=== PATIENT | female | born 1950 | race Caucasian/White ===

== ENCOUNTER 2016-06-10 19:31 | Observation (INO) | payer BC ==
[2016-06-10] MEDS ORDERED: NS 0.9% 1000 ML* 2,000 ML IV ONE (19:44)
--- NOTE | 2016-06-10 20:22 | RAD ---
CLINICAL HISTORY: Pain, status post colonoscopy COMPARISON: None TECHNIQUE: Multiple contiguous axial CT scans were obtained of the abdomen and pelvis, without intravenous contrast enhancement. Coronal and sagittal multiplanar reformations are submitted for review. Oral contrast was not administered. FINDINGS: The study is limited by the lack of intravenous contrast. This limits evaluation of the solid organs and vasculature. LUNG BASES: The lung bases are clear. LIVER: The liver is normal in shape, size, contour, and attenuation. BILE DUCTS: There is no intrahepatic or extrahepatic biliary dilatation. GALLBLADDER: Multiple gallstones are noted. There is no pericholecystic inflammatory change. PANCREAS: The pancreas is normal, without mass or ductal dilatation. SPLEEN: Normal in size and appearance. UPPER GI TRACT: Evaluation of the gastrointestinal tract is limited by incomplete gastric distention. There is post surgical change to the upper GI tract, possibly status post Stefany-en-Y gastrectomy. There is distention with a large amount of gastric contents within the gastric remnant SMALL BOWEL AND MESENTERY: The small bowel is normal in contour, course, and caliber. There is no obstruction or dilatation. COLON: There are multiple diverticula of the descending and sigmoid colon. There is no pericolonic inflammatory change. ADRENALS: Normal bilaterally. KIDNEYS: The kidneys are normal in shape, size, contour, and axis. There is no hydronephrosis or nephrolithiasis. BLADDER: The bladder is incompletely distended but is grossly normal. PELVIC ORGANS: The pelvic organs are not visualized. AORTA: The aorta is normal. IVC: Unremarkable LYMPH NODES: There is no lymphadenopathy by size criteria. ABDOMINAL WALL: There is no evidence for abdominal wall hernia. BONES AND SOFT TISSUES: There are mild diffuse degenerative changes. OTHER: There is no free intraperitoneal gas IMPRESSION: 1. DIVERTICULOSIS. 2. NO FREE INTRAPERITONEAL GAS TO SUGGEST PERFORATION. 3. THE PATIENT APPEARS TO BE STATUS POST GASTRIC BYPASS, WITH WITH A LARGE AMOUNT OF GASTRIC CONTENTS WITHIN THE GASTRIC REMNANT. 4. CHOLELITHIASIS
[2016-06-10] MEDS ORDERED: HYDROmorphone* 1 MG/ML 1 ML SYR IV ONE ×2 (21:06→22:10)
[2016-06-10] MEDS ORDERED: Metoclopramide IV* 5 MG/ML 2 ML VIAL IV ONE (21:06)
[2016-06-10 21:14] LABS: ALT 119 U/L (7-52); Albumin 3.9 g/dL (3.2-5.2); Alkaline Phosphatase 303 U/L (34-104); BUN/Creatinine Ratio 11.3 (8-20); Blood Urea Nitrogen 9 mg/dL (6-24); C Reactive Protein 27.09 mg/L (< 5.00); CO2 Carbon Dioxide 24 mmol/L (22-32); Calcium 9.1 mg/dL (8.6-10.3); Chloride 97 mmol/L (101-111); EGFR African American 92.9 (>60); EGFR Non-African American 72.2 (>60); Globulin 3.4 g/dL (2-4); Glucose 296 mg/dL (70-100); Lipase 429 U/L (11.0-82.0); Sodium 131 mmol/L (133-145); Total Protein 7.3 g/dL (6.4-8.9)
[2016-06-10 21:25] LABS: Hematocrit 37 % (35-47); Hemoglobin 12.4 g/dl (12.0-16.0); Mean Corpuscular HGB Conc 33 g/dl (31-36); Mean Corpuscular Hemoglobin 28 pg (27-31); Mean Corpuscular Volume 82 fL (80-97); Mean Platelet Volume 8 um3 (7.4-10.4); Red Blood Count 4.51 10^6/ul (4.0-5.4); Red Cell Distribution Width 15 % (10.5-15); White Blood Count 7.4 10^3/ul (3.5-10.8)
[2016-06-10 21:45] LABS: Urine Bilirubin Negative (Negative); Urine Glucose 3+(>=500 mg/dL) (Negative); Urine Nitrite Negative (Negative)
--- NOTE | 2016-06-10 21:54 | ED ---
Mauri Devlin Claudia, scribed for Deepika Valadez MD on 06/10/16 at 2034 . Abdominal Pain/Female - HPI Summary HPI Summary: 65 year old female presents to the ED with diffuse abd pain, fever and chills after a colonoscopy this am. The procedure was done by Cyrus Poon MD. Pt notes that she was feeling fine after the colonoscopy but it was later in the day she began experiencing Sx. Pt notes she ate at 9:30am directly after the procedure and again around 4pm but the Sx did not start until around 5pm this evening. Pt notes the pain is sharp and the pain intensity comes and goes but it is aggravated with movement. Pt admits to N/V due denies and diarrhea. Pt had gastric bypass at [facility] [place] in 1985. - History of Current Complaint Chief Complaint: EDAbdPain Stated Complaint: POST COLONOSCOPY COMPLAINT Time Seen by Provider: 06/10/16 20:27 Onset/Duration: Sudden Onset, Lasting Days - today post colonoscopy, Still Present Timing: Constant Pain Intensity: 8 Pain Scale Used: 0-10 Numeric Location: Diffuse Radiates: No Character: Sharp Aggravating Factor(s): Movement Associated Signs and Symptoms: Positive: Fever, Other: - chills Allergies/Adverse Reactions: Allergies Allergy/AdvReac Type Severity Reaction Status Date / Time No Known Allergies Allergy Verified 06/10/16 19:37 PMH/Surg Hx/FS Hx/Imm Hx Previously Healthy: Yes Endocrine/Hematology History: Reports: Hx Diabetes Cardiovascular History: Denies: Hx Myocardial Infarction Infectious Disease History: No Infectious Disease History: Denies: Traveled Outside the [place] in Last 30 Days - Family History Known Family History: Negative: Cardiac Disease - Social History Occupation: Retired Lives: With Family Alcohol Use: Rare Substance Use Type: Reports: None Smoking Status (MU): Never Smoked Tobacco Review of Systems Positive: Fever, Chills Eyes: Negative ENT: Negative Cardiovascular: Negative Respiratory: Negative Positive: Abdominal Pain, Vomiting, Nausea. Negative: Diarrhea Genitourinary: Negative Musculoskeletal: Negative Skin: Negative Neurological: Negative Psychological: Normal All Other Systems Reviewed And Are Negative: Yes Physical Exam Triage Information Reviewed: Yes Vital Signs On Initial Exam: Initial Vitals Temp Pulse Resp BP Pulse Ox 100.1 F 110 24 159/63 97 06/10/16 19:36 06/10/16 19:36 06/10/16 19:36 06/10/16 19:36 06/10/16 19:36 Vital Signs Reviewed: Yes Appearance: Positive: Ill-Appearing - mildly ill appearing, uncomfortable Skin: Positive: Warm, Skin Color Reflects Adequate Perfusion, Dry Eyes: Positive: EOMI, SERVANDO Neck: Positive: Supple, Nontender Respiratory/Lung Sounds: Positive: Clear to Auscultation, Breath Sounds Present. Negative: Rales, Rhonchi, Wheezes Cardiovascular: Positive: RRR. Negative: Murmur, Leg Edema Left, Leg Edema Right Abdomen Description: Positive: Distended, Other: - diffuse tenderness no rebound no guarding Bowel Sounds: Positive: Hypoactive Musculoskeletal: Positive: Strength/ROM Intact Neurological: Positive: Sensory/Motor Intact, Alert, Oriented to Person Place, Time, CN Intact II-III Psychiatric: Positive: Affect/Mood Appropriate Diagnostics - Vital Signs Vital Signs Temp Pulse Resp BP Pulse Ox 06/10/16 19:36 100.1 F 110 24 159/63 97 - Laboratory Lab Results: Lab Results 06/10/16 06/10/16 06/10/16 Range/Units 20:20 20:53 20:53 WBC 7.4 (3.5-10.8) 10^3/ul RBC 4.51 (4.0-5.4) 10^6/ul Hgb 12.4 (12.0-16.0) g/dl Hct 37 (35-47) % MCV 82 (80-97) fL MCH 28 (27-31) pg MCHC 33 (31-36) g/dl RDW 15 (10.5-15) % Plt Count 146 L (150-450) 10^3/ul MPV 8 (7.4-10.4) um3 Neut % (Auto) 91.2 H (38-83) % Lymph % (Auto) 5.4 L (25-47) % [place] % (Auto) 2.3 (1-9) % Eos % (Auto) 0.6 (0-6) % Baso % (Auto) 0.5 (0-2) % Absolute Neuts (auto) 6.8 (1.5-7.7) 10^3/ul Absolute Lymphs (auto) 0.4 L (1.0-4.8) 10^3/ul Absolute Monos (auto) 0.2 (0-0.8) 10^3/ul Absolute Eos (auto) 0 (0-0.6) 10^3/ul Absolute Basos (auto) 0 (0-0.2) 10^3/ul Absolute Nucleated RBC 0.01 10^3/ul Nucleated RBC % 0.1 Sodium 131 L (133-145) mmol/L Potassium TNP Chloride 97 L (101-111) mmol/L Carbon Dioxide 24 (22-32) mmol/L Anion Gap TNP BUN 9 (6-24) mg/dL Creatinine 0.80 (0.51-0.95) mg/dL Est GFR ( Amer) 92.9 (>60) Est GFR (Non-Af Amer) 72.2 (>60) BUN/Creatinine Ratio 11.3 (8-20) Glucose 296 H (70-100) mg/dL Lactic Acid 1.8 (0.5-2.0) mmol/L Calcium 9.1 (8.6-10.3) mg/dL Total Bilirubin 1.60 H (0.2-1.0) mg/dL AST TNP ALT 119 H (7-52) U/L Alkaline Phosphatase 303 H (34-104) U/L C-Reactive Protein 27.09 H (< 5.00) mg/L Total Protein 7.3 (6.4-8.9) g/dL Albumin 3.9 (3.2-5.2) g/dL Globulin 3.4 (2-4) g/dL Albumin/Globulin Ratio 1.1 (1-3) Lipase 429 H (11.0-82.0) U/L Urine Color Urine Appearance Urine pH (5-9) Ur Specific [place] (1.010-1.030) Urine Protein (Negative) Urine Ketones (Negative) Urine Blood (Negative) Urine Nitrate (Negative) Urine Bilirubin (Negative) Urine Urobilinogen (Negative) Ur Leukocyte Esterase (Negative) Urine Glucose (Negative) 06/10/16 06/10/16 Range/Units 20:53 21:31 WBC (3.5-10.8) 10^3/ul RBC (4.0-5.4) 10^6/ul Hgb (12.0-16.0) g/dl Hct (35-47) % MCV (80-97) fL MCH (27-31) pg MCHC (31-36) g/dl RDW (10.5-15) % Plt Count (150-450) 10^3/ul MPV (7.4-10.4) um3 Neut % (Auto) (38-83) % Lymph % (Auto) (25-47) % [place] % (Auto) (1-9) % Eos % (Auto) (0-6) % Baso % (Auto) (0-2) % Absolute Neuts (auto) (1.5-7.7) 10^3/ul Absolute Lymphs (auto) (1.0-4.8) 10^3/ul Absolute Monos (auto) (0-0.8) 10^3/ul Absolute Eos (auto) (0-0.6) 10^3/ul Absolute Basos (auto) (0-0.2) 10^3/ul Absolute Nucleated RBC 10^3/ul Nucleated RBC % Sodium (133-145) mmol/L Potassium 3.7 Chloride (101-111) mmol/L Carbon Dioxide (22-32) mmol/L Anion Gap BUN (6-24) mg/dL Creatinine (0.51-0.95) mg/dL Est GFR ( Amer) (>60) Est GFR (Non-Af Amer) (>60) BUN/Creatinine Ratio (8-20) Glucose (70-100) mg/dL Lactic Acid (0.5-2.0) mmol/L Calcium (8.6-10.3) mg/dL Total Bilirubin (0.2-1.0) mg/dL AST 359 H ALT (7-52) U/L Alkaline Phosphatase (34-104) U/L C-Reactive Protein (< 5.00) mg/L Total Protein (6.4-8.9) g/dL Albumin (3.2-5.2) g/dL Globulin (2-4) g/dL Albumin/Globulin Ratio (1-3) Lipase (11.0-82.0) U/L Urine Color Yellow Urine Appearance Clear Urine pH 7.0 (5-9) Ur Specific [place] 1.010 (1.010-1.030) Urine Protein Negative (Negative) Urine Ketones Negative (Negative) Urine Blood Negative (Negative) Urine Nitrate Negative (Negative) Urine Bilirubin Negative (Negative) Urine Urobilinogen Positive H (Negative) Ur Leukocyte Esterase Negative (Negative) Urine Glucose 3+(>=500 mg/dl) H (Negative) Result Diagrams: 06/10/16 20:53 06/10/16 20:53 Lab Statement: Any lab studies that have been ordered have been reviewed, and results considered in the medical decision making process. - CT ABD/PELVIS CT Interpretation: No Acute Changes - 1. DIVERTICULOSIS. 2. NO FREE INTRAPERITONEAL GAS TO SUGGEST PERFORATION. 3. THE PATIENT APPEARS TO BE STATUS POST GASTRIC BYPASS, WITH WITH A LARGE AMOUNT OF GASTRIC CONTENTS WITHIN THE GASTRIC REMNANT. CT Interpretation Completed By: Radiologist Abdominal Pain Fem Course/Dx - Diagnoses Provider Diagnoses: Abdominal pain - Provider Notifications Discussed Care Of Patient With: DR. POON WHOM WILL CHECK IN WITH PT. HE ALSO AGREES WITH PLAN FOR REGLAN AND DILAUDID. Discharge - Discharge Plan Condition: Stable Disposition: ADMITTED TO [facility] The documentation as recorded by the Mauri leal Claudia accurately reflects the service I personally performed and the decisions made by , Deepika Valadez MD.
--- NOTE | 2016-06-10 22:30 | RAD ---
HISTORY: Elevated liver enzymes COMPARISONS: CT dated June 10, 2016 TECHNIQUE: Multiple transverse and longitudinal ultrasound images were obtained of the right upper quadrant of the abdomen using grayscale and color Doppler imaging. FINDINGS: The study is limited by patient bowel gas. LIVER: The liver is diffusely echogenic and coarse in echotexture, with decreased acoustic transmission. The liver is enlarged measuring 21 cm in long axis.. There is normal hepatopedal flow of the portal vein on Doppler imaging. BILIARY TREE: There is no intrahepatic or extrahepatic biliary dilatation. The common duct measures 0.4 cm. GALLBLADDER: There are multiple echogenic, nonshadowing, immobile foci consistent with gallbladder wall polyps. There are probable gallstones as noted on CT. There is no gallbladder wall thickening or pericholecystic fluid, or sonographic Medrano sign. PANCREAS: The head of the pancreas is unremarkable. The tail of the pancreas is not well visualized secondary to overlying bowel gas. RIGHT KIDNEY: The right kidney is normal in shape, size, contour, and echogenicity. There is no hydronephrosis or nephrolithiasis. The right kidney measures 10.9 x 4.7 x 4.8 cm. AORTA AND IVC: The aorta and IVC are unremarkable. FLUID: There are no pleural effusions. There is no free fluid within the hepatorenal recess. OTHER FINDINGS: None. IMPRESSION: 1. HEPATOMEGALY WITH FATTY INFILTRATION OF THE LIVER. 2. NO SONOGRAPHIC FEATURES OF ACUTE CHOLECYSTITIS.
--- NOTE | 2016-06-10 23:22 | CONS ---
CONSULTATION NOTE: DATE OF CONSULT: 06/10/16 REASON FOR THE CONSULTATION: Abdominal pain, status post colonoscopy. NARRATIVE: Ms. Jj is a 65-year-old woman who underwent an outpatient elective colonoscopy this morning that was done due to a family history of colon cancer. The study was notable for a few small polyps, which were removed with biopsy forceps, no cautery was applied. The patient postprocedure did well. She was able to tolerate liquids and was discharged home. She continued to do well through the course of the day. She ate a breakfast sandwich, fries, and then had a vegetable chicken soup. She then went to take a nap at around 4 this afternoon and awoke at about 6 with intense abdominal pain with distention , nausea, and vomiting. She felt chills. She contacted me, at which time I told her to report to the emergency room. On arrival here, she had a low-grade fever of about 100 and was describing abdominal pain. Her workup here has included a CAT scan of the abdomen without contrast, which I did personally review with the radiologist, demonstrating no evidence of perforation or colonic injury or splenic injury. The patient has a history of gastric stapling and did have a large amount of food in the stomach. Additionally, cholelithiasis was noted with a somewhat distended gallbladder. Laboratory data came back demonstrating a white count of 7.4, hemoglobin of 12.4 , total bilirubin of 1.6, AST of 359, ALT of 119, alk phos of 303, and a lipase of 429. The patient is currently getting an ultrasound. The patient does describe occasions of abdominal pain, nausea, and vomiting and is always attributed to complications after her gastric stapling. She was under the impression that she did have a cholecystectomy at the time of her gastric surgery. PAST MEDICAL HISTORY: Includes asthma, thyroid disease, and obesity. PAST SURGICAL HISTORY: Includes gastric stapling, abdominoplasty, hysterectomy , breast reductions, and 2 C-sections. MEDICATIONS: Ambulatory medicines include: 1. Xanax. 2. Clobetasol. 3. Gabapentin. 4. Claritin. 5. Prilosec. 6. Ditropan. 7. Inderal. 8. DiaBeta. PHYSICAL EXAMINATION: On physical exam, the patient is a somewhat uncomfortable obese woman, alert. Her temperature is 100.1, blood pressure is 159/63, and heart rate is 110 and regular. She is anicteric. Cardiac exam reveals a tachycardic rhythm but no murmur. Abdomen is obese with multiple scars. It is soft and there is [id number] tenderness in the right and left lower quadrants without rebound or guarding. There is no Medrano's sign. IMPRESSION: A 65-year-old woman who underwent an elective colonoscopy earlier today, felt well and then presents with abdominal pain, nausea, and vomiting. Laboratory data suggests perhaps gallstone pancreatitis. She does have cholelithiasis on the CAT scan. She also has a significant amount of food in the stomach after gastric stapling. There is no evidence of colonic injury. This maybe a manifestation of gallstone pancreatitis, unrelated to her colonoscopy. Alternatively, this could be from overeating post procedure; however, that would not explain about biochemical changes. We are going to get to an ultrasound. I believe she should be admitted and spoken to the hospitalist service for that. She should get repeat liver function tests in the morning. We are also going to attempt an NG tube to suction the gastric material to see if that improves how she feels. This was explained to her and her family. [id number]/[facility] #: [id number] MTDD
[2016-06-11] MEDS ORDERED: Ondansetron INJ* 2 MG/ML VIAL IV PRN (00:08)
[2016-06-11] MEDS ORDERED: HYDROmorphone* 1 MG/ML 1 ML SYR IV SLOW PU PRN (00:08)
[2016-06-11] MEDS ORDERED: NS 0.9% 1000 ML* 1,000 ML IV SCH ×2 (00:15→11:17)
[2016-06-11] MEDS ORDERED: Dextrose 50% Syringe 50 ML* 25 GM/50 ML SYRINGE IV PUSH PRN (01:27)
[2016-06-11] MEDS: Heparin VIAL(*) 5000 UNITS/ML VIAL (FIVE THOUSAND) SUBCUT SCH ×3 (05:28→21:36)
[2016-06-11] MEDS ORDERED: Insulin LISPRO* 1 UNITS UNIT SUBCUT SCH (06:00)
--- NOTE | 2016-06-11 06:08 | HP ---
HISTORY AND PHYSICAL: DATE OF ADMISSION: 06/11/16 CHIEF COMPLAINT: Abdominal pain. HISTORY OF PRESENT ILLNESS: The patient is a 65-year-old woman, who earlier today underwent a colonoscopy for screening. She was concerned because her mother of colon cancer. She states then sometime later this evening, she developed pain across her entire stomach. She felt like she was very bloated too and the pain was over 10/10 in severity. It was constant and was sharp. She took nothing for it. She felt wobbly and dizzy, however, with it. She has had no bowel movement since the colonoscopy. She has had nausea and vomiting and she denies any fevers or chills. The patient did have a CAT scan in the ER , which showed no evidence of perforation. She also had an ultrasound because of her abnormal LFTs and abdominal pain and this showed no evidence of cholecystitis. PAST MEDICAL HISTORY: Significant for diabetes mellitus, GERD, diabetic neuropathy, restless legs syndrome, anxiety, thyroid disease, and obesity. PAST SURGICAL HISTORY: Includes gastric bypass surgery, ROWENA-BSO, breast reduction, bleeding ulcers, two C-sections. CURRENT MEDICATIONS: 1. Propranolol 40 mg twice daily. 2. Oxybutynin 10 mg daily. 3. Omeprazole 20 mg daily. 4. Loratadine 10 mg daily. 5. Ibuprofen 600 mg daily. 6. Gabapentin 900 mg twice daily. 7. EpiPen as directed. 8. Clobetasol propionate 0.05% topical as directed. 9. Alprazolam 0.25 mg every 6 hours as needed. 10. Glyburide 7.5 mg twice daily. FAMILY HISTORY: Mother at 59 of colon cancer as noted. Father is alive at 86, has kidney problems, diabetes, and tremor. SOCIAL HISTORY: No tobacco, rare alcohol, no recreational drug use. 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 She is , with 4 children. Her , Waqas Jj, is her healthcare proxy. REVIEW OF SYSTEMS: A 14-point review of systems was completed with the patient. All pertinent positives and negatives are in the history of present illness, otherwise is negative. PHYSICAL EXAMINATION GENERAL: A pleasant woman lying in bed, in no acute distress. VITAL SIGNS: Blood pressure 168/57, pulse ox 99%, respiratory rate 18 breaths per minute, heart rate 110 beats per minute, temperature 98.5 degrees. HEENT: Normocephalic, atraumatic. Pupils are equal, round, and reactive to light. Moist mucous membranes. NECK: Supple. No JVD, bruits, palpable thyroid, or lymphadenopathy. CHEST: Clear to auscultation and percussion bilaterally. CARDIOVASCULAR: S1, S2 appreciated. ABDOMEN: Positive bowel sounds in all 4 quadrants. Soft, nontender, and nondistended. No hepatosplenomegaly. EXTREMITIES: No cyanosis, clubbing, or edema. +2 peripheral pulses bilaterally. NEURO: Alert and oriented x3. Moves all extremities. SKIN: No rashes or abnormalities. DIAGNOSTIC STUDIES/LAB DATA: White count 7.4, hemoglobin 12.4, hematocrit 37, platelets 146. Sodium is 131, potassium , chloride 97, CO2 24, BUN 9, creatinine 0.80, glucose 296. AST 359, ALT 119, alk phos 303. Lipase is 429. Urinalysis: +3 glucose, positive urobilinogen. Abdominal pelvic CT shows diverticulosis, no free intraperitoneal gas or perforation, status post gastric bypass and large amount of gastric contents within the gastric remnant. Gallbladder ultrasound showed hepatomegaly with fatty infiltration of liver. No sonographic evidence of acute cholecystitis. ASSESSMENT AND PLAN: 1. Abdominal pain. At this point, it is of unclear etiology. She does have evidence of pancreatitis, and still could be gallbladder pancreatitis. We will admit to the floor, place on IV fluids, Dilaudid p.r.n. for pain, and Zofran p.r.n. for nausea, GI to see the patient in the a.m. 2. Diabetes mellitus. Fingersticks with sliding scale insulin and monitor. 3. Diabetic neuropathy. Continue gabapentin. 4. Anxiety. Continue alprazolam p.r.n. 5. Gastroesophageal reflux disease. Continue omeprazole. 6. DVT prophylaxis. Heparin subcu. 7. The patient is a full code. TIME SPENT: Over 75 minutes was spent on this H and P, more than 40 minutes of which was spent in direct [id number] contact with the patient in evaluation, physical exam, counseling, and coordination of care. CC: Dee Varner NP* [id number]/[facility] #: [id number] [facility]
[2016-06-11 06:32] LABS: Albumin 3.5 g/dL (3.2-5.2); Direct Bilirubin 1.9 mg/dL (0.03-0.18); Globulin 3.5 g/dL (2-4); Total Bilirubin 2.9 mg/dL (0.2-1.0)
[2016-06-11] MEDS ORDERED: ZOSYN 3.375 GM ONE TIME DOSE-OVER 30 MINUTES IVPB (11:00)
[2016-06-11] MEDS ORDERED: ALPRAZolam TAB* 0.25 MG PO PRN (11:32)
[2016-06-11] MEDS: Gabapentin CAP(*) 300 MG PO SCH ×2 (11:45→22:25)
[2016-06-11] MEDS: Morphine INJ* 4 MG/ML 1 ML SYRINGE IV PRN ×3 (11:45→21:29)
[2016-06-11] MEDS: Insulin LISPRO* 1 UNITS UNIT SUBCUT SCH ×2 (12:02→17:52)
[2016-06-11] MEDS ORDERED: Piperac/Tazob 3.375 gm in NS* 3.375 GM/100 ML BAG IVPB SCH (16:00)
--- NOTE | 2016-06-11 16:21 | RAD ---
HISTORY: Elevated bilirubin COMPARISONS: CT dated June 10, 2016, ultrasound dated May 24, 2016 TECHNIQUE: The following sequences are submitted of the abdomen: Axial T2-weighted images with fat saturation, coronal T2-weighted images this with and without fenestration, 3-D maximum intensity projection reconstructions FINDINGS: LIVER: No focal hepatic parenchymal masses. GALLBLADDER: Multiple gallstones are noted. There is trace amount of pericholecystic fluid.. BILIARY TREE: Evaluation of the intrahepatic biliary tree on the coronal images limited by motion. There is a small filling defect of the distal common duct is approximately ampulla measuring 0.2 cm in size, best seen on coronal image 18 of series 4. PANCREAS: The pancreas is unremarkable. The pancreatic duct is normal. OTHER: Unremarkable IMPRESSION: 1. CHOLELITHIASIS, WITH A TRACE RIGHT PERICHOLECYSTIC FLUID. 2. THERE IS A SMALL FILLING DEFECT WITHIN THE DISTAL COMMON DUCT WHICH MAY INDICATE CHOLEDOCHOLITHIASIS GIVEN THE ASSOCIATED GALLSTONES. THERE IS NO BILIARY DILATATION.
--- NOTE | 2016-06-11 18:18 | PN ---
Subjective Date of Service: 06/11/16 Interval History: Ms. Jj continues to have mild abdominal pain but primarily complains of headache and restless legs. She denies chest pain, SOB, nausea. Objective Active Medications: Alprazolam (Xanax Tab*) 0.25 mg PO Q6H PRN Dextrose (D50w Syringe 50 Ml*) 12.5 gm IV PUSH .FOR FS < 60 - SS PRN Gabapentin (Neurontin Cap(*)) 900 mg PO BID SEA Heparin Sodium (Porcine) (Heparin Vial(*)) 5,000 units SUBCUT Q8HR SEA Hydromorphone HCl (Dilaudid Iv*) 0.5 mg IV SLOW PU Q4H PRN Sodium Chloride (Ns 0.9% 1000 Ml*) 1,000 mls @ 150 mls/hr IV PER RATE SEA Piperacillin Sod/Tazobactam Sod (Zosyn 3.375 Gm In Ns Premix*) 3.375 gm in 100 mls @ 25 mls/hr IVPB Q8H SEA Insulin Human Lispro (Humalog*) 0 units SUBCUT Q6HR SEA Morphine Sulfate (Morphine Inj (Syringe)*) 4 mg IV Q4H PRN Ondansetron HCl (Zofran Inj*) 4 mg IV Q4H PRN Vital Signs 06/11/16 06/11/16 06/11/16 01:00 01:03 01:14 Temperature Pulse Rate 109 108 109 Respiratory Rate Blood Pressure 116/80 (mmHg) O2 Sat by Pulse 90 92 92 Oximetry 06/11/16 06/11/16 06/11/16 01:16 01:18 01:20 Temperature Pulse Rate 109 109 108 Respiratory Rate Blood Pressure (mmHg) O2 Sat by Pulse 92 93 93 Oximetry 06/11/16 06/11/16 06/11/16 01:22 01:24 01:26 Temperature Pulse Rate 107 105 108 Respiratory Rate Blood Pressure (mmHg) O2 Sat by Pulse 92 92 92 Oximetry 06/11/16 06/11/16 06/11/16 01:28 01:30 01:36 Temperature 98.5 F Pulse Rate 106 110 Respiratory 18 18 Rate Blood Pressure 168/57 (mmHg) O2 Sat by Pulse 91 99 Oximetry 06/11/16 06/11/16 06/11/16 02:22 04:19 07:19 Temperature 98.5 F 98.0 F Pulse Rate 110 97 Respiratory 18 16 16 Rate Blood Pressure 168/57 143/57 (mmHg) O2 Sat by Pulse 99 99 Oximetry 06/11/16 06/11/16 06/11/16 07:45 08:00 08:19 Temperature 101.1 F Pulse Rate 101 Respiratory 18 18 18 Rate Blood Pressure 155/72 (mmHg) O2 Sat by Pulse 90 Oximetry 06/11/16 06/11/16 06/11/16 11:45 12:13 12:45 Temperature 101.2 F Pulse Rate 90 Respiratory 16 18 16 Rate Blood Pressure 136/55 (mmHg) O2 Sat by Pulse 91 Oximetry 06/11/16 06/11/16 13:45 16:47 Temperature Pulse Rate Respiratory 16 16 Rate Blood Pressure (mmHg) O2 Sat by Pulse Oximetry Oxygen Devices in Use Now: None Appearance: Female sitting up in bed in NAD Respiratory: Symmetrical Chest Expansion and Respiratory Effort, Clear to Auscultation Cardiovascular: NL Sounds; No Murmurs; No JVD, No Edema Abdominal: NL Sounds; No Tenderness; No Distention Extremities: No Edema Skin: No Rash or Ulcers Neurological: Alert and Oriented x 3, NL Muscle Strength and Tone Nutrition: Taking PO's Result Diagrams: 06/10/16 20:53 06/10/16 20:53 Additional Lab and Data: Lab Results 06/10/16 06/10/16 06/10/16 Range/Units 20:20 20:53 20:53 WBC 7.4 (3.5-10.8) 10^3/ul RBC 4.51 (4.0-5.4) 10^6/ul Hgb 12.4 (12.0-16.0) g/dl Hct 37 (35-47) % MCV 82 (80-97) fL MCH 28 (27-31) pg MCHC 33 (31-36) g/dl RDW 15 (10.5-15) % Plt Count 146 L (150-450) 10^3/ul MPV 8 (7.4-10.4) um3 Neut % (Auto) 91.2 H (38-83) % Lymph % (Auto) 5.4 L (25-47) % Whitman % (Auto) 2.3 (1-9) % Eos % (Auto) 0.6 (0-6) % Baso % (Auto) 0.5 (0-2) % Absolute Neuts (auto) 6.8 (1.5-7.7) 10^3/ul Absolute Lymphs (auto) 0.4 L (1.0-4.8) 10^3/ul Absolute Monos (auto) 0.2 (0-0.8) 10^3/ul Absolute Eos (auto) 0 (0-0.6) 10^3/ul Absolute Basos (auto) 0 (0-0.2) 10^3/ul Absolute Nucleated RBC 0.01 10^3/ul Nucleated RBC % 0.1 Sodium 131 L (133-145) mmol/L Potassium TNP Chloride 97 L (101-111) mmol/L Carbon Dioxide 24 (22-32) mmol/L Anion Gap TNP BUN 9 (6-24) mg/dL Creatinine 0.80 (0.51-0.95) mg/dL Est GFR ( Amer) 92.9 (>60) Est GFR (Non-Af Amer) 72.2 (>60) BUN/Creatinine Ratio 11.3 (8-20) Glucose 296 H (70-100) mg/dL Lactic Acid 1.8 (0.5-2.0) mmol/L Calcium 9.1 (8.6-10.3) mg/dL Total Bilirubin 1.60 H (0.2-1.0) mg/dL AST TNP ALT 119 H (7-52) U/L Alkaline Phosphatase 303 H (34-104) U/L C-Reactive Protein 27.09 H (< 5.00) mg/L Total Protein 7.3 (6.4-8.9) g/dL Albumin 3.9 (3.2-5.2) g/dL Globulin 3.4 (2-4) g/dL Albumin/Globulin Ratio 1.1 (1-3) Lipase 429 H (11.0-82.0) U/L Urine Color Urine Appearance Urine pH (5-9) Ur Specific Hunters (1.010-1.030) Urine Protein (Negative) Urine Ketones (Negative) Urine Blood (Negative) Urine Nitrate (Negative) Urine Bilirubin (Negative) Urine Urobilinogen (Negative) Ur Leukocyte Esterase (Negative) Urine Glucose (Negative) 06/10/16 06/10/16 Range/Units 20:53 21:31 WBC (3.5-10.8) 10^3/ul RBC (4.0-5.4) 10^6/ul Hgb (12.0-16.0) g/dl Hct (35-47) % MCV (80-97) fL MCH (27-31) pg MCHC (31-36) g/dl RDW (10.5-15) % Plt Count (150-450) 10^3/ul MPV (7.4-10.4) um3 Neut % (Auto) (38-83) % Lymph % (Auto) (25-47) % Whitman % (Auto) (1-9) % Eos % (Auto) (0-6) % Baso % (Auto) (0-2) % Absolute Neuts (auto) (1.5-7.7) 10^3/ul Absolute Lymphs (auto) (1.0-4.8) 10^3/ul Absolute Monos (auto) (0-0.8) 10^3/ul Absolute Eos (auto) (0-0.6) 10^3/ul Absolute Basos (auto) (0-0.2) 10^3/ul Absolute Nucleated RBC 10^3/ul Nucleated RBC % Sodium (133-145) mmol/L Potassium 3.7 Chloride (101-111) mmol/L Carbon Dioxide (22-32) mmol/L Anion Gap BUN (6-24) mg/dL Creatinine (0.51-0.95) mg/dL Est GFR ( Amer) (>60) Est GFR (Non-Af Amer) (>60) BUN/Creatinine Ratio (8-20) Glucose (70-100) mg/dL Lactic Acid (0.5-2.0) mmol/L Calcium (8.6-10.3) mg/dL Total Bilirubin (0.2-1.0) mg/dL AST 359 H ALT (7-52) U/L Alkaline Phosphatase (34-104) U/L C-Reactive Protein (< 5.00) mg/L Total Protein (6.4-8.9) g/dL Albumin (3.2-5.2) g/dL Globulin (2-4) g/dL Albumin/Globulin Ratio (1-3) Lipase (11.0-82.0) U/L Urine Color Yellow Urine Appearance Clear Urine pH 7.0 (5-9) Ur Specific Hunters 1.010 (1.010-1.030) Urine Protein Negative (Negative) Urine Ketones Negative (Negative) Urine Blood Negative (Negative) Urine Nitrate Negative (Negative) Urine Bilirubin Negative (Negative) Urine Urobilinogen Positive H (Negative) Ur Leukocyte Esterase Negative (Negative) Urine Glucose 3+(>=500 mg/dl) H (Negative) Assess/Plan/Problems-Billing Assessment: Ms. Jj is a 65 yo female with a PMH of DM, HTN, and gastric stapling for stomache ulcers who was admitted on 06/10/16 with gallstone pancreatitis. - Patient Problems (1) Gallstone pancreatitis Comment: Lipase now normal but LFTs elevated and patient is febrile. Suspect patient has stone in CBD. (2) Cholangitis Comment: Initially patient had elevated lipase but is now normal. However LFTs are elevated and patient is now febrile. Suspect cholangitis. Patient was then taken for MRCP which confirmed filling defect in common bile duct. Consulted with surgery and GI, do not have services to perform ERCP. Will need transfer. Patient accepted to [facility] by Dr. Stewart. Continue zosyn. (3) Diabetes Comment: Type 2. Hold home meds. Continue lispro SSI coverage with meals. (4) Neuropathy Comment: Continue neurontin. Status and Disposition: Transfer to [facility] for ERCP for cholangitis. Continue zosyn in the interim.
[2016-06-11 19:27] VITALS: BP 113/71
--- NOTE | 2016-06-11 21:53 | TRS ---
HOSPITAL MEDICINE TRANSFER SUMMARY: DATE OF ADMISSION: 06/10/16 DATE OF TRANSFER: To [facility] in [place], 06/11/16 PRIMARY CARE PROVIDER: Dee Varner NP ATTENDING PHYSICIAN: DO Marily King(dictation provided by Edie Isabel NP) . PRIMARY DIAGNOSES: Cholangitis. SECONDARY DIAGNOSES: 1. Type 2 diabetes, noninsulin dependent. Hemoglobin A1c checked this admission is 9.7. 2. Gastroesophageal reflux disease. 3. Diabetic neuropathy. 4. Restless leg syndrome. 5. Anxiety. 6. Thyroid disease. 7. Obesity. 8. History of gastric bypass surgery. 9. History of ROWENA-BSO. 10. Breast reduction. 11. Bleeding ulcers. 12. History of 2 C-sections. MEDICATIONS: At outpatient are: 1. Propranolol 40 mg twice daily. 2. Oxybutynin 10 mg daily. 3. Omeprazole 20 mg daily. 4. Loratadine 10 mg daily. 5. Ibuprofen 600 mg daily. 6. Gabapentin 900 mg twice daily. 7. EpiPen as directed. 8. Clobetasol propionate 0.05% topical as directed. 9. Alprazolam 0.25 mg q.6 hours as needed. 10. Glyburide 7.5 mg twice daily. HOSPITAL COURSE: Ms. Jj is a 65-year-old female with a past medical history as outlined above who was seen by Dr. Gonzalez from our gastroenterology service on 06/10/[address] Gonzalez reported that the patient had polyps removed, but it was an uneventful procedure. The patient was discharged to home. Several hours later in the afternoon, the patient had the sudden onset of nausea, vomiting, and abdominal pain and presented to the emergency room. In the emergency room, she had a CT of the abdomen and pelvis, which was read as follows: "Diverticulosis, no free intraperitoneal gas to suggest perforation. The patient appears to be status post gastric bypass with a large amount of gastric contents within the gastric remnant and cholelithiasis." The patient was surprised to find that she had gallstones as she had thought she had a gallbladder removal at the time of her gastric stapling for stomach ulcerations many, many years ago. Despite the normal CT scan, the patient was found to have an elevated lipase to 429. This combined with her abdominal pain , nausea, vomiting and presence of gallstones let us suspect the patient was having gallstone pancreatitis. Ms. Jj was admitted to the hospital. The following day, her liver enzymes had risen more. On arrival, AST was 359, today it is 439; ALT was 119, now it is 233; total bilirubin was 1.6, now it is 2.90. The patient's alk phos was originally 303 and today it is 251. The patient's lipase returned to normal, on arrival it was 429, today it is 57. In addition, the patient developed fever. Her temperature today has ran around 101. Because of this, there was concern that the patient perhaps common bile duct stone with cholangitis. The patient was started Zosyn and an MRCP was obtained. MRCP shows as follows: "Cholelithiasis with a trace right pericholecystic fluid with a small filling defect within the distal common bile duct, which may indicate a choledocholithiasis given the associated gallstone, there is no biliary dilatation." The patient was seen in consultation by surgical services as well as Gastroenterology. Unfortunately, we will not perform ERCP at this hospital over the next few days and therefore, the patient will need transfer to a tertiary care facility. I have spoken with Dr. Stewart at [facility] in [facility], who has accepted the patient in transfer for planned ERCP. DISPOSITION: To [facility] [address]. DIET: Clear liquids only. TIME SPENT: Approximately 60 minutes were spent on the discharge of this patient, more than half the time spent with the patient at the bedside reviewing the patient's plan of care for transfer to [facility] [address] as well as performing the physical examination. EDIE ISABEL NP CC: Dee Varner NP * [id number]/[facility] #: [id number] MTDDanica
--- NOTE | 2016-06-11 22:02 | CONS ---
SURGICAL CONSULTATION: DATE OF CONSULT: 06/11/16 REASON FOR CONSULTATION: Abdominal pain, cholelithiasis, elevated LFTs. REQUESTING PHYSICIAN: Cyrus Gonzalez MD HISTORY OF PRESENT ILLNESS: This is a 65-year-old female with a past medical history significant for peptic ulcer disease, status post partial gastrectomy with "bypass" reconstruction in the and, she reports, a cholecystectomy at that time. She has also history of obesity, diabetes, gastroesophageal reflux. She was recently admitted to the hospitalist service because of abdominal pain following a colonoscopy on 06/10/16. The patient's initial postprocedure course was uneventful and though she was very tired after surgery , she did eat breakfast sandwich from [employer] and some chicken soup. Later that evening, she developed abdominal bloating, tense abdomen and pain across the abdomen and radiation to her back on both sides. She had 6 or 7 episodes of emesis, which were food that she ate. She did not have any improvement in her pain after that. She notes that she was not passing any gas at that time. She was evaluated in the emergency room and had CT scan of the abdomen and pelvis performed, which demonstrated no free air, diverticulosis, and cholelithiasis. She was also noted to have abnormalities of her chemistries with a lipase of 429, bilirubin 1.6, transaminases elevated, and elevated CRP of 27. The patient was sent for ultrasound of the gallbladder as well and this demonstrated hepatomegaly, fatty infiltration of the liver, gallstones without gallbladder wall thickening or pericholecystic fluid and no sonographic Medrano' s sign. Her common bile duct was 4.4 cm. The patient was seen by Dr. Gonzalez and subsequently admitted to the hospitalist service for medical management. The patient was managed with IV fluids, IV narcotics, and antiemetics and PPI. A surgical consultation was requested as her LFTs are continuing to increase. She does not report any tea-colored urine or shantel-colored stools. PAST MEDICAL HISTORY: As above, also diabetic neuropathy; restless leg syndrome ; anxiety; thyroid disease; tendinitis, right shoulder; tremor. PAST SURGICAL HISTORY: As reported above, the patient states in the , she underwent a partial gastrectomy due to the peptic ulcer disease and underwent reconstruction, which she was told was a bypass. She was also told she had a cholecystectomy at that time. She is status post section x2 with appendectomy and status post ROWENA-BSO, abdominoplasty with revisions, and bilateral breast reduction surgery. MEDICATIONS: Currently, she is on: 1. Xanax. 2. Neurontin. 3. Heparin subcutaneous. 4. Dilaudid p.r.n. 5. Insulin. 6. Morphine. 7. Zosyn. 8. IV fluids. ALLERGIES: None known. FAMILY HISTORY: Mother of colon cancer at age 59. Father has diabetes and kidney problems. SOCIAL HISTORY: No tobacco or drug use. Rarely uses alcohol. She is and her accompanied her today. REVIEW OF SYSTEMS: 10-point review of systems was completed and findings are significant for above, otherwise was negative. DIAGNOSTIC STUDIES/LAB DATA: WBC is 7.4, platelets 146, no bandemia. Chemistries: Notable for elevated total bilirubin today 2.9 with direct bili of 1.9. AST 439, ALT 233, and alk phos 251. Lipase normal at 57. IMAGING DATA: CT scan, abdomen and pelvis and gallbladder ultrasound as above. IMPRESSION: This is a 65-year-old female with a complex past surgical history and abdominal pain though temporarily related to a colonoscopy does not appear to be secondary to complications of this, but rather appears to be of biliary origin. Although she states she had a cholecystectomy the gallbladder is well visualized. PLAN/RECOMMENDATIONS: I discussed the findings with the patient and her , who accompanied her. At this point, I agree with plan for the MRCP. If she is found to have a common bile duct stone, then seems transfer to a high level facility is warranted as at present, we do not have availability of ERCP at this time. Also, given her complex surgical reconstruction, it would be advisable to transfer her should it be felt that any surgical intervention is necessary for addressing complex biliary tract disease. [facility] will follow up with you. We will keep her n.p.o. Follow up LFTs. CC: Dee Varner NP; Cyrus Gonzalez MD* [id number]/[facility] #: [id number] LIGIA
== END 2016-06-11 23:15 | disposition short-term general hospital (02) ==
LOC: ED 19:31 → SSU 06-11 00:47
PROVIDERS: ADMIT Internal Medicine; ATTEND Hospitalist
DX: K83.0 Cholangitis (principal); K85.10 Biliary acute pancreatitis without necrosis or infection; E11.40 Type 2 diabetes mellitus with diabetic neuropathy, unspecified; Z79.84 Long term (current) use of oral hypoglycemic drugs; G25.81 Restless legs syndrome; F41.9 Anxiety disorder, unspecified; E66.9 Obesity, unspecified; K21.9 Gastro-esophageal reflux disease without esophagitis; Z98.84 Bariatric surgery status; K57.90 Diverticulosis of intestine, part unspecified, without perforation or abscess without bleeding; Z79.899 Other long term (current) drug therapy
CPT/HCPCS: 36415; 74176; 74181; 76376; 76705; 80053; 80076; 81003; 83036; 83605; 83690; 85025; 86140; 87040; 87077; 87186; 87205; 96361; 96365; 96366; 96372; 96375; 96376; 99285; A9270-GY; G0378; J1170; J1644; J2270; J2405; J2543